=== PATIENT | male | born 1980 | race Caucasian/White ===

== ENCOUNTER 2017-04-12 16:04 | Inpatient (IN) | payer OTHER ==
[~2017-04-12] VITALS: Ht 185.4 cm; Wt 87.1 kg
--- NOTE | 2017-04-12 23:25 | NUR ---
PRE-ADMISSION NOTE Pt is a 36 y/o male, seen at intake, AAOx4, no SOB with mild anxiety noted at this time. Discussed with patient admission policies of the unit. Patient is coherent and able to respond to questions appropriately. Pt is ambulatory with steady gait. Vital signs taken and as follows: BP: 142/97, P: 78, R: 18, O2: 95%, T: 98.7, PA: 0. Pt verbalized understanding of instructions and teachings regarding disposal of narcotic and other controlled home medications, unit protocols such as taking of vital signs Q4H and handling and disposal of contraband. Will continue with admission upon pts arrival on the unit.
[2017-04-12 23:35] VITALS: BP 142/97
--- NOTE | 2017-04-12 23:35 | NUR ---
ADMISSION NOTE Pt is a 36 y/o male admitted on 04/12/17 for ETOH dependence, arrived on the unit at 2335. Pt has NKA, denies history of seizures. Pt was able to provide UDS. Upon admission CIWA 4, BP: 142/97, P: 78, R: 18, O2: 95%, T: 98.7, PA: 0. Weight 192, height 61. Pt reports he does not have a PCP, smokes 2.5 packs daily, denies being hospitalized within past 30 days. Pt is able to understand and respond to all questions pertaining to his hospitalization. Substance Abuse History is as follows: 1. Whiskey 1-2 pints daily, last intake of 1 pint on 04/12/17, at this rate for the past month. 2. Beer 12 pack x 3-4 weekly, last intake of 12 pack on 04/11/17, at this rate for 25 years. 3. Marijuana 1.5 grams daily, last intake of 1 bowl on 04/12/17, at this rate for 18 years. Pts longest sober period for 25 months while pt was in [facility] from [id number], per pt. Treatment history: Pt reports approximately 4 treatment histories- [facility], [place], [place]-2004, [facility] 2005, [facility], and in [place], "I don't remember where or when. Pt reports is father and mother were alcoholics. PMH: Anxiety, depression. Pt denies any hx of seizures. Pt did not bring any medications from home, but reports taking Tylenol or Advil PRN for pain occasionally. Upon assessment, pt is AAOx4, pt is mildly intoxicated, presents with anxiety, skin is flushed, and has mild chills. Respirations even and unlabored. Denies SOB, chest pain, N/V/D. Bowel sounds active x 4, abdomen soft. PERRLA. Skin intact, no open wounds noted. Pt denies SI/HI. Educational information provided and left at bedside. Pt oriented to room and encouraged to notify staff with any concerns. Safety measures in place. Call light within reach, side rails up x 2, bed locked and in low position. Will continue to monitor. Addendum: 04/13/17 at 0528 by ESTHER BLACK RN PMH: hx of fracture to right thumb (2011)
[2017-04-12 23:54] LABS: *AMPHETAMINE, URINE NEGATIVE (NEGATIVE); *BARBITURATE, URINE NEGATIVE (NEGATIVE); *CANNABINOID, URINE POSITIVE (NEGATIVE); *COCCAINE, URINE NEGATIVE (NEGATIVE); *OPIATE, URINE NEGATIVE (NEGATIVE); *PHENCYCLIDINE SCREEN,URINE NEGATIVE (NEGATIVE)
[2017-04-13] VITALS: BP 139/98
--- NOTE | 2017-04-13 | NUR ---
VITAL SIGNS T 97.7, P 65, O2 96%, BP 96/55, R18. CIWA deferred. Pt is laying in bed with eyes closed, to be reassessed when pt is fully awake per MD order. Respirations even and unlabored. Safety measures in place. Call light within reach.
--- NOTE | 2017-04-13 00:30 | NUR ---
PRN BENADRYL ADMINISTRATION Pt requested aid for sleep. Benadryl 50 mg administered. Vitamin B1 inj administered as ordered. Safety measures in place. Will continue to monitor.
[2017-04-13 00:43] LABS: BASOPHILS # (AUTO) 0.1 K/uL (0.0-8.0); BASOPHILS % (AUTO) 0.7 % (0.0-2.0); EOSINOPHILS # (AUTO) 0.2 K/uL (0.0-0.7); EOSINOPHILS % (AUTO) 2.3 % (0.0-7.0); HEMATOCRIT 48.6 % (40-50); LYMPHOCYTES # (AUTO) 4.8 K/UL (0.8-4.8); LYMPHOCYTES % (AUTO) 49.9 % (20.5-51.5); MEAN CORPUSCULAR HEMOGLOBIN 29.8 UUG (27.0-31.0); MEAN CORPUSCULAR HGB CONC 33 g/dL (32.0-37.0); MEAN CORPUSCULAR VOLUME 90.4 FL (82.0-92.0); MONOCYTES # (AUTO) 0.8 K/UL (0.1-1.30); MONOCYTES % (AUTO) 8.1 % (0.0-11.0); NEUTROPHILS # (AUTO) 3.7 K/UL (1.8-8.9); PLATELET COUNT (AUTO) 266 K/UL (150-450); RED BLOOD CELL COUNT(AUTO) 5.38 MIL/UL (4.7-6.1); WHITE BLOOD COUNT (AUTO) 9.6 K/UL (4.0-11.2)
[2017-04-13 00:56] LABS: BILIRUBIN,TOTAL 0.3 mg/dL (0.2-1.0); CREATININE 0.9 mg/dL (0.6-1.3); MAGNESIUM 1.9 mg/dL (1.8-2.4); POTASSIUM 3.1 mmol/L (3.5-5.1); TOTAL PROTEIN, SERUM 7.4 g/dL (6.4-8.2)
--- NOTE | 2017-04-13 01:30 | NUR ---
0130 PRN BENADRYL REASSESSMENT Pt is laying in bed with eyes closed. Respirations 16, even and unlabored. No S/S of distress noted. Safety measures in place. Will continue to monitor.
[2017-04-13] MEDS ORDERED: IBUP-1955 PO (03:34)
[2017-04-13] MEDS ORDERED: ACET-2154 PO (03:34)
[2017-04-13 04:00] VITALS: BP 96/55
--- NOTE | 2017-04-13 07:16 | NUR ---
END OF SHIFT Pt is a 36 y/o male admitted on 04/12/17 for ETOH dependence. Pt was dependent on whiskey 1-2 pints daily, beer 12 pack 3-4 x weekly, and MJ 1.5 grams daily. Pt is full code, regular diet, fall and seizure precautions, NKA. No hx of seizure per pt. Pt reports PMH of anxiety, depression and hx of fracture to right thumb (2011). Scheduled vit b1 injection and PRN benadryl administered, effective. Last CIWA 3. Pt slept 4 hours. Intake 1110 ml, void x 1, stool x 0. Safety measures in place. Call light within reach. Pt needs have been met. Endorsed to day shift nurse.
--- NOTE | 2017-04-13 07:17 | NUR ---
Start of Shift Notes: Received patient in his room. Alert and oriented x 4. Verbally responsive. Able to make his needs known. Respirations even and unlabored. No SOB noted. Skin warm and dry to touch. Abdomen soft and non-distended with (+) BS in all 4 quadrants. No complains of N/v/D or constipation noted. Bladder non-distended. No complains of dysuria. Voids independently. Ambulatory ad nina with steady gait. Patient is a 36 year old male admitted for ETOH dependence who was placed on 5-day Ativan taper as ordered. No adverse reactions noted. Has past medical hx of anxiety, depression, and hx of fracture to right thumb. Prior to admission, patient was drinking 1-2 pints of whiskey x 1 month, 12 pack of beer, 1.5 grams of marijuana. NKA. FULL CODE. Regular diet. On fall and seizure precautions. Educated patient on his current plan of care for the day and his medication regimen. Encouraged oral fluid intake and encouraged group participation to learn new skills to prevent relapse. Will continue to monitor closely.
[2017-04-13 08:00] VITALS: BP 113/72
--- NOTE | 2017-04-13 10:44 | NUR ---
Potassium 40 meQ po given: Late administration of Potassium 40 mEq PO. Patient requested for med to be given at this time. Med given to replace patient's K+ level. MD made aware and said OK to be given at this time.
[2017-04-13 12:00] VITALS: BP 146/81
--- NOTE | 2017-04-13 12:20 | NUR ---
Additional admission notes: Patient reports that he was in long term from 04/11/2017 to 04/12/2017 and then came to [facility].
[2017-04-13 16:00] VITALS: BP 117/74
--- NOTE | 2017-04-13 16:00 | NUR ---
ROMAN Deferred: Patient is seen laying in bed with eyes closed. Breathing even and unlabored. Chest movement noted. RR 14. CIWA deferred at this time. Addendum: 04/13/17 at 1656 by LESLEY FERRO LVN Amended: Links added.
--- NOTE | 2017-04-13 17:59 | NUR ---
Ativan at 1700 not administered: Patient is laying in bed with eyes closed. Easily arousable. Appears sedated. No changes in LOC noted. Ativan at 1700 PO held at this time. Will continue to monitor.
--- NOTE | 2017-04-13 18:51 | NUR ---
End of Shift Notes: Patient initiated his 5-day Ativan taper today at 0900. No adverse reactions noted. Tolerating taper well. VS monitored closely q 4 hours. No significant abnormalities noted. Withdrawal symptoms were closely monitored. Initial CIWA 8 patient presented with sweats, gross tremors, moderate anxiousness, and mild agitation. Last CIWA 3. Patient was unable to participate in group and activities due to his withdrawal symptoms. Per patient, Ativan has been helping him with his withdrawal symptoms. Ativan at 1700 held due to sedation. Safety precautions in place. Calm, compliant and cooperative with care. All needs met and attended. Will continue to monitor closely.
--- NOTE | 2017-04-13 19:30 | NUR ---
START OF SHIFT Pt is a 36 y/o male admitted on 04/12/17 for ETOH dependence. Pt was dependent on whiskey 1-2 pints daily, beer 12 pack 3-4 x weekly, and MJ 1.5 grams daily. Pt is full code, regular diet, fall and seizure precautions, NKA. No hx of seizure per pt. Pt reports PMH of anxiety, depression and hx of fracture to right thumb (2011). Pt started on a 5 day Ativan taper on 04/13/17. Upon assessment, pt is laying in bed with eyes closed. Pt reports going to one meeting during the day. Pt presents with anxiety, fatigue, flat affect. flushed skin, chills, mild sweats. Respirations 16, even and unlabored. Denies N/V/D. Last BM this morning. Denies chest pain or SOB. Medications due. Safety measures in place. Call light within reach. Will continue to monitor.
[2017-04-13 20:00] VITALS: BP 125/73
--- NOTE | 2017-04-13 20:19 | NUR ---
PRN BENADRYL Administered 50 mg PRN Benadryl per client request for sleep aid. Safety measures in place. Call light within reach. Will continue to monitor.
--- NOTE | 2017-04-13 21:19 | NUR ---
PRN BENADRYL REASSESSMENT Pt is laying in bed with eyes closed. Respirations 16, even and unlabored. Safety measures in place Call light within reach. Will continue to monitor.
[2017-04-14] VITALS (8 sets, daily range): BP systolic 121–150; BP diastolic 81–104
--- NOTE | 2017-04-14 | NUR ---
VITAL SIGNS BP 137/87, P 56, R 14, 02 98%, T 97.8 PA 0 CIWA deferred, pt is laying in bed with eyes closed, to be assessed when pt is awake per orders. Respirations even and unlabored. Safety measures in place. Call light within reach. Will continue to monitor.
--- NOTE | 2017-04-14 04:00 | NUR ---
VITAL SIGNS BP 139/94, P 61, R 16, 02 100%, T 97.7, PA 0/10 CIWA deferred, pt is laying in bed with eyes closed, to be assessed when pt is awake per orders. Respirations even and unlabored. Safety measures in place. Call light within reach. Will continue to monitor.
--- NOTE | 2017-04-14 07:06 | NUR ---
END OF SHIFT Pt is a 36 y/o male admitted on 04/12/17 for ETOH dependence. Pt was dependent on whiskey 1-2 pints daily, beer 12 pack 3-4 x weekly, and MJ 1.5 grams daily. Pt is full code, regular diet, fall and seizure precautions, NKA. No hx of seizure per pt. Pt reports PMH of anxiety, depression and hx of fracture to right thumb (2011). Pt started on a 5 day Ativan taper on 04/13/17. Pt presented with anxiety, fatigue, flat affect, flushed skin, chills, mild sweats. Scheduled Ativan and PRN benadryl administered, effective in management of S/S of withdrawal as verbalized by pt. Last CIWA 4. Pt slept 10.5 hours. Intake 350 ml, void x 2, stool x 0. Safety measures in place. Call light within reach. Pts needs have been met. Endorsed to day shift nurse.
[2017-04-14 08:10] LABS: HEPATITIS B SURFACE AG Negative (Negative)
--- NOTE | 2017-04-14 13:07 | NUR ---
Clonidine 0.1mg PO given: Patient was given Clonidine 0.1mg PO as ordered for BP 150/104. Patient denies headache, dizziness, chest pain or blurred vision. Will monitor for effectiveness.
--- NOTE | 2017-04-14 14:07 | NUR ---
Re-assessment: BP 133/89. PRN Clonidine was effective in reducing patient's blood pressure.
--- NOTE | 2017-04-14 18:52 | NUR ---
End of Shift Notes: Patient continues to be on 5-day Ativan taper. No adverse reactions noted. Tolerating taper well. VS monitored closely q 4 hours. BP 150/104 at 1200. Medicated patient with Clonidine 0.1mg PO as ordered with help after 1 hour. Withdrawal symptoms were closely monitored. Initial CIWA 7 patient presented with sweats, gross tremors, anxiety and mild agitation. Last CIWA 2. Patient was unable to participate in group and activities due to his withdrawal symptoms. Per patient, Ativan has been helping him with his withdrawal symptoms. Safety precautions in place. Calm, compliant and cooperative with care. All needs met and attended. Will continue to monitor closely.
--- NOTE | 2017-04-14 19:15 | NUR ---
Start of Shift Note: Patient is a 36 y/o male admitted on 04/12/17 for ETOH dependence. Patient has PMHx: Anxiety, Depression, & hx of fracture on the right thumb (2016). No seizure history noted. Patient reported drinking 1-2 pints of whiskey daily and 12 pack of beer 3x-4x a week for 1 month. Patient is on a regular diet with no known food and drug allergies. Full Code status. Patient is on a 5-day Ativan taper and tolerating well. Last CIWA is 3. PRN Clonidine given during day shift. Upon assessment, pt observed in room lying in bed with no s/s of distress. Patient denies any pain/discomfort. No s/s of distress noted. Patient presented with complains of slight sweating and anxiety. No N/V/D noted. Safety measures in place. Bed locked in lowest position. Both side rails up. Call light within reach. Will continue to monitor patient.
--- NOTE | 2017-04-14 21:41 | NUR ---
PRN Benadryl Patient requesting for medication to help him sleep. PRN Benadryl administered as ordered. Will continue to monitor patient.
--- NOTE | 2017-04-15 | NUR ---
Vital/Ciwa deferred Patient refused vitals at this time. Patient asleep in bed and appears comfortable. No s/s of distress noted. Unable to assess Ciwa.. Will continue to monitor patient.
[2017-04-15 04:00] VITALS: BP 128/76
--- NOTE | 2017-04-15 07:13 | NUR ---
End of Shift Note: Pt had an uneventful night. Pt continues on his Ativan taper and tolerating well.. Pt had trouble sleeping and was given PRN Benadryl for sleep. Last CIwa is 2. Patient reported that taper medication is effective in controlling withdrawal symptoms. Patient remains stable and vitals WNL. Patient monitored closely. Pt slept for a total of 8 hours. Consumed 500ml of fluids. Voided 2x with no bowel movement. Encourage pt to increase fluid intake as tolerated. Will endorse pt to day shift nurse.
[2017-04-15 08:00] VITALS: BP 139/93
--- NOTE | 2017-04-15 10:00 | NUR ---
MD Communication: Noted patient with generalized pin point rashes all over body area. Patient states that he developed this after taking a shower and reports that he tends to be sensitive to laundry detergent. Daisy aware and will enter in orders.
[2017-04-15 12:00] VITALS: BP 132/79
--- NOTE | 2017-04-15 12:03 | NUR ---
Bendaryl 25 mg PO given: Patient was given Benadryl 25 mg PO as ordered due to complains of itching. Will monitor for effectiveness.
--- NOTE | 2017-04-15 13:03 | NUR ---
Re-assessment: Benadryl Per patient, PRN Benadryl was effective in relieving itching.
[2017-04-15 16:00] VITALS: BP 130/81
--- NOTE | 2017-04-15 18:53 | NUR ---
End of Shift Notes: Patient continues to be on 5-day Ativan taper. No adverse reactions noted. Tolerating taper well. VS monitored closely q 4 hours. No significant abnormalities noted. Withdrawal symptoms were closely monitored. Initial CIWA 4, patient presented with fine tremors, anxiety, and sweats. Last CIWA 2. Encouraged patient to participate in group and activities. Per patient, Ativan has been helping him with his withdrawal symptoms. Safety precautions in place. Calm, compliant and cooperative with care. All needs met and attended. Will continue to monitor closely.
--- NOTE | 2017-04-15 19:10 | NUR ---
START OF SHIFT This is the case of a 36-year-old male with an admitting diagnosis of ETOH dependence. Patient has a history of drinking 1-2 pints of whiskey/day for one month, 12 packs of beer 3-4times/week for one month, Marijuana use of 1.5g/day for 25 years, and tobacco 2.5 packs/day for 18 years. Patient has a medical history of anxiety, depression, and fracture of his right thumb in 2011. Patient is FULL CODE, on regular diet with NKA. Patient is on a 5 day ativan taper, today is the third day, he is tolerating well. Last CIWA score was 2 at 1600. Patient received PRN Benadryl at 1200 for rash and itchiness. It was effective, patient verbalizes decreased itchiness. Patient was received in bed, awake, alert and oriented x4. Upon assessment, patient denied N/V, headache and hallucinations. Patient verbalized mild anxiety, no tremors noted. Patient denies pain at this time. Patients respirations are even and unlabored. Safety precautions in place. Will continue to monitor.
[2017-04-15 20:04] VITALS: BP 151/100
--- NOTE | 2017-04-15 20:36 | NUR ---
PRN CLONIDINE AND TRAZODONE Patient requested medication to help him sleep. Patient's BP was elevated at 151/100, HR of 78. PRN meds given at 6. Will reassess within 1 hour.
--- NOTE | 2017-04-15 21:36 | NUR ---
PRN REASSESSMENT Patient still awake at this time. Vitals re-checked, PRN Clonidine was effective, patient's BP is 126/78, HR 82. Patient stable at this time, no signs of distress, respirations even and unlabored. Will continue to monitor.
--- NOTE | 2017-04-15 22:45 | NUR ---
PRN BENADRYL Patient c/o of itchiness. PRN Benadryl given at 2245. Will continue to monitor.
--- NOTE | 2017-04-16 00:05 | NUR ---
VITALS & CIWA DEFERRED Patient head trouble sleeping and requested not to be woken up for vitals at this time. Patient asleep in bed, no signs and symptoms of distress. Unable to obtain CIWA score at this time. Patient's respirations even and unlabored. Will continue to monitor.
[2017-04-16 04:01] VITALS: BP 91/43
--- NOTE | 2017-04-16 04:02 | NUR ---
CIWA DEFERRED Patient is asleep in bed, CIWA deferred. Patient's respirations are even and unlabored. Will continue to monitor.
--- NOTE | 2017-04-16 07:05 | NUR ---
Start of Shift Endorsement received from nightshift nurse. Pt is a 36 y/o male admitted for alcohol dependence. PT has been placed on a 5 day Ativan taper. PT is tolerating the taper AEB CIWA 2 at 1999. Pt has received PRN Clonidine, Trazodone and Benadryl. Pt reports sleeping 8 hours. VS WNL. Full Code. PT reports readiness for sobriety. Pt is in STABLE condition at this time. Remains compliant with medication and diet regimen. All needs have been met, All safety measures in place per hospital policy. Bed in lowest position, side rails up x2, call-light within reach. Will continue to monitor.
--- NOTE | 2017-04-16 07:12 | NUR ---
END OF SHIFT This is the case of a 36-year-old male with an admitting diagnosis of ETOH dependence. Patient is FULL CODE, on regular diet with NKA. Patient is on a 5 day ativan taper, today is the fourth day, he is tolerating well. Patients last CIWA score was 2 at 1999. Patient was given PRN Clonidine and PRN Trazodone at 2035. Patient was reassessed at 213; PRNs effective. Patient was given PRN Benadryl at 224 for itchiness. Patient was reassessed at 2345; Benadryl was effective. Patient slept a total of 8 hours. Intake: 737mL, void x 1, stool x1. Patient remains compliant with medications and treatment. Patients respirations are even and unlabored. Safety precautions in place. Will continue to monitor. Will endorse patient to day shift.
[2017-04-16 08:00] VITALS: BP 105/62
[2017-04-16 12:00] VITALS: BP 100/56
[2017-04-16 16:00] VITALS: BP 122/75
--- NOTE | 2017-04-16 19:19 | NUR ---
End of Shift Endorsement given to nightshift nurse. Pt is a 36 y/o male admitted for alcohol dependence. PT has been placed on a 5 day Ativan taper. PT is tolerating the taper AEB CIWA 2 at 1600. Pt has not received any PRN medications. Pt participated in groups and and activities. Intake: 1250ml, Void x2, BM x1. VS WNL. Full Code. PT reports readiness for sobriety. Pt is in STABLE condition at this time. Remains compliant with medication and diet regimen. All needs have been met, All safety measures in place per hospital policy. Bed in lowest position, side rails up x2, call-light within reach. Will continue to monitor.
[2017-04-16 20:09] VITALS: BP 117/92
--- NOTE | 2017-04-16 23:14 | NUR ---
Start of shift note Received report from day shift nurse. Pt is a 36 yo male, A+Ox4, presenting to [facility] for ETOH/Marijuana dependence. Pt has NKA, is on Full Code status, and on Regular diet. Pt is on Fall and Seizure precautions. Pt has HX of Anxiety,Depression, and Right thumb FX. Pt is on 5 day Ativan taper, tolerated well. No s/s of distress noted at this time. Respirations even and unlabored. Will continue to monitor.
--- NOTE | 2017-04-17 00:03 | NUR ---
PRN Trazodone Pt c/o inability to sleep and requested for PRN Trazodone. Medication given and tolerated well. Will reassess within 1 HR. Will continue monitor.
[2017-04-17 00:12] VITALS: BP 112/84
--- NOTE | 2017-04-17 01:00 | NUR ---
PRN Trazodone reassessment Medication effective. No s/s of ASE/distress noted at this time. Respirations even and unlabored. Will continue to monitor.
[2017-04-17 04:09] VITALS: BP 115/87
--- NOTE | 2017-04-17 07:00 | NUR ---
End of shift note Pt is a 36 yo male, A+Ox4, presenting to [facility] for ETOH/Marijuana dependence. Pt has NKA, is on Full Code status, and on Regular diet. Pt is on Fall and Seizure precautions. Pt has HX of Anxiety, Depression, and Right thumb FX. Pt is on 5 day Ativan taper, tolerated well. Pt was given PRN Trazodone @0003. Pt slept for a total of 8 HRS. Last CIWA: 1 @0400. No s/s of distress noted at this time. Respirations even and unlabored. Will endorse to day shift nurse.
--- NOTE | 2017-04-17 07:09 | NUR ---
Start of Shift Endorsement received from nightshift nurse. Pt is a 36 y/o male admitted for alcohol dependence. PT has been placed on a 5 day Ativan taper. PT is tolerating the taper AEB CIWA 1 at 0400. Pt has received PRN Trazodone. Pt is scheduled to complete the Ativan taper today, 04/17/17. Pt reports readiness for sobriety. Pt reports sleeping 8 hours. VS WNL. Full Code. PT reports readiness for sobriety. Pt is in STABLE condition at this time. Remains compliant with medication and diet regimen. All needs have been met, All safety measures in place per hospital policy. Bed in lowest position, side rails up x2, call-light within reach. Will continue to monitor.
[2017-04-17 08:00] VITALS: BP 145/94
[2017-04-17 12:00] VITALS: BP 133/74
--- NOTE | 2017-04-17 14:55 | NUR ---
PRN Vistaril Pt reports 12/31 anxiety. PT received PRN Vistaril 50mg per Dr. Solis. Will re-assess.
--- NOTE | 2017-04-17 15:30 | NUR ---
Medication Re-assessment Pt reports 3/10 anxiety at this time. Medication was effective.
[2017-04-17 16:00] VITALS: BP 150/101
--- NOTE | 2017-04-17 18:53 | NUR ---
End of Shift Endorsement given to nightshift nurse. Pt is a 36 y/o male admitted for alcohol dependence. PT has been placed on a 5 day Ativan taper. PT is tolerating the taper AEB CIWA 3 at 1600. PT has completed his Ativan taper and has been scheduled to be discharged on 04/18/17. Pt received PRN Vistaril for anxiety, medication was effective. Educated PT on S/E of medications and diet regimen. Educated pt on deep breathing technique to help relieve minor to moderate anxiety. Pt participated in groups and and activities. Intake: 2100ml, Void x5, BM x1. VS WNL. Full Code. PT reports readiness for sobriety. Pt is in STABLE condition at this time. Remains compliant with medication and diet regimen. All needs have been met, All safety measures in place per hospital policy. Bed in lowest position, side rails up x2, call-light within reach. Will continue to monitor.
--- NOTE | 2017-04-17 19:06 | NUR ---
Start of shift note Received report from day shift nurse. Pt is a 36 yo male, A+Ox4, presenting to [facility] for ETOH/Marijuana dependence. Pt has NKA, is on Full Code status, and on Regular diet. Pt is on Fall and Seizure precautions. Pt has HX of Anxiety,Depression, and Right thumb FX. Pt has completed 5 day Ativan taper, tolerated well, and is due for discharge tomorrow. No s/s of distress noted at this time. Respirations even and unlabored. Will continue to monitor.
[2017-04-17] MEDS ORDERED: TRAZ-147 PO (19:10)
[2017-04-17] MEDS ORDERED: MULT-24 PO (19:10)
[2017-04-17] MEDS ORDERED: GABA-534 PO (19:10)
[2017-04-17] MEDS ORDERED: THIA100T13 PO (19:10)
[2017-04-17] MEDS ORDERED: HYDR-3895 PO (19:10)
[2017-04-17] MEDS ORDERED: FOLI1TAB16 PO (19:10)
[2017-04-17 20:03] VITALS: BP 140/92
--- NOTE | 2017-04-17 22:39 | NUR ---
PRN Trazodone Pt c/o inability to sleep and requested for PRN Trazodone. Medication given and tolerated well. Will reassess within 1 HR. Will continue monitor.
--- NOTE | 2017-04-17 23:35 | NUR ---
PRN Trazodone reassessment Medication effective. No s/s of ASE/distress noted at this time. Respirations even and unlabored. Will continue to monitor.
[2017-04-18 00:15] VITALS: BP 142/88
[2017-04-18 04:12] VITALS: BP 138/83
--- NOTE | 2017-04-18 06:58 | NUR ---
End of shift note Pt is a 36 yo male, A+Ox4, presenting to [facility] for ETOH/Marijuana dependence. Pt has NKA, is on Full Code status, and on Regular diet. Pt is on Fall and Seizure precautions. Pt has HX of Anxiety, Depression, and Right thumb FX. Pt has completed 5 day Ativan taper, tolerated well, and is due for discharge today. Pt was given PRN Trazodone @2239. Pt slept for a total of 8 HRS. Last CIWA: 1 @0400. No s/s of distress noted at this time. Respirations even and unlabored. Will endorse to day shift nurse.
--- NOTE | 2017-04-18 07:05 | NUR ---
Start of Shift Endorsement received from nightshift nurse. Pt is a 36 y/o male admitted for alcohol dependence. PT has been placed on a 5 day Ativan taper. PT is tolerating the taper AEB CIWA 1 at 0400. Pt has received PRN Trazodone. Pt has been scheduled to be discharged today, 04/18/17. All discharge documentation has been completed and signed. PT has received all discharge education. Pt reports readiness for sobriety. Pt reports sleeping 8 hours. VS WNL. Full Code. PT reports readiness for sobriety. Pt is in STABLE condition at this time. Remains compliant with medication and diet regimen. All needs have been met, All safety measures in place per hospital policy. Bed in lowest position, side rails up x2, call-light within reach. Will continue to monitor.
[2017-04-18 08:00] VITALS: BP 125/78
--- NOTE | 2017-04-18 09:17 | NUR ---
Discharge note PT has been discharged from [facility] to [facility]. PT is in Stable condition, VS WNL. Denies suicidal and homicidal ideations at this time. All documentation has been completed, paperwork signed and dated. Pt left with all of his belongings, medications and prescriptions. Pt has been discharged from [facility] on 04/18/17 at 0917. has been Notified.
== END 2017-04-18 09:29 | disposition other institution (70) | DRG 895 ==
LOC: SRC 22:40
PROVIDERS: ADMIT Internal Medicine; ATTEND Internal Medicine
PROC: HZ2ZZZZ Detoxification Services for Substance Abuse Treatment (ICD-10-PCS; principal; 2017-04-12)
PROC: HZ41ZZZ Group Counseling for Substance Abuse Treatment, Behavioral (ICD-10-PCS; 2017-04-13)
PROC: HZ31ZZZ Individual Counseling for Substance Abuse Treatment, Behavioral (ICD-10-PCS; 2017-04-15)
DX: F10.230 Alcohol dependence with withdrawal, uncomplicated (principal); I15.9 Secondary hypertension, unspecified; E86.0 Dehydration; E87.6 Hypokalemia; F41.9 Anxiety disorder, unspecified; F10.220 Alcohol dependence with intoxication, uncomplicated; F12.90 Cannabis use, unspecified, uncomplicated; F17.210 Nicotine dependence, cigarettes, uncomplicated; F90.9 Attention-deficit hyperactivity disorder, unspecified type; Z81.1 Family history of alcohol abuse and dependence; Y90.6 Blood alcohol level of 120-199 mg/100 ml; G47.00 Insomnia, unspecified; L24.0 Irritant contact dermatitis due to detergents
CPT/HCPCS: 36415; 70030-TC; 80307; 80349; 83735; 85025; 86580; 86592; 86705; 86803; 87340; 87806; G0480; J3411; Q0163